=== PATIENT | male | born 1945 | race Caucasian/White ===

== ENCOUNTER 2017-12-24 08:37 | Day surgery (SDC) | payer MEDICARE, MEDICAID ==
[2017-12-23 08:27] VITALS: BMI 20.4
[2017-12-24] MEDS ORDERED: Bupivacaine/Epinephrine 0.25% 30 ML VIAL ONE (10:52)
[2017-12-24] MEDS ORDERED: Fentanyl 100 MCG/2 ML VIAL ONE ×2 (10:57→13:20)
[2017-12-24] MEDS ORDERED: CEFAZOLIN/Water 2 GM/20 ML SYRINGE ONE (11:06)
[2017-12-24] MEDS ORDERED: Ketamine 50 MG/ML VIAL ONE (11:08)
[2017-12-24] MEDS ORDERED: SUGAMMADEX SODIUM 200 MG/2 ML VIAL ONE (11:56)
[2017-12-24 11:57] LABS: Anion Gap 10 mmol/L (10-20); BUN (Urea Nitrogen) 18 mg/dL (8.4-25.7); Calc. Creatinine Clearance 54 mL/min (70-130); Calcium 9.3 mg/dL (7.8-10.44); Carbon Dioxide 25 mmol/L (23-31); Chloride 105 mmol/L (98-107); Estimated GFR-MDRD 59; Glucose 116 mg/dL (83-110); Sodium 136 mmol/L (136-145)
[2017-12-24 12:53] LABS: #Basophils 0.1 thou/uL (0.0-0.2); #Eosinphils 0.3 thou/uL (0.0-0.7); #Lymphocytes 2.6 thou/uL (1.20-3.40); #Neutrophils 8.4 thou/uL (1.40-6.50); %Basophils 0.6 % (0.0-1.0); %Eosinophils 2.1 % (0.0-10.0); %Monocytes 7.9 % (0.0-10.0); %Neutrophils 68.4 % (42.0-75.0); Hemoglobin 13.5 g/dL (14.0-18.0); Mean Corpuscular HGB CONC 32.6 g/dL (32.0-36.0); Mean Corpuscular Hemoglobin 29.7 pg (27.0-31.0); Mean Corpuscular Volume 91.1 fL (78.0-98.0); Mean Platelet Volume 7.9 fL (7.4-10.4); Platelet Count 268 thou/uL (130-400); RBC Distribution Width 14.8 % (11.5-14.5); Red Blood Cell (RBC) Count 4.55 mill/uL (4.70-6.10); White Blood Cell (WBC) Count 12.2 thou/uL (4.8-10.8)
[2017-12-24 12:55] LABS: Reflex for Review?? NO
[2017-12-24] MEDS ORDERED: Hydrocortisone Sod Succ/PF 100 mg/2 ml Vial ONE (13:26)
[2017-12-24] MEDS ORDERED: Esmolol 100 MG/10 ML VIAL ONE (13:26)
[2017-12-24] MEDS ORDERED: PHENYLEPHRINE-NS 100 MCG/ML 10 ML SYRINGE ONE (13:26)
[2017-12-24] MEDS ORDERED: Ondansetron HCl/PF 4 MG/2 ML Vial ONE (13:53)
--- NOTE | 2017-12-24 17:46 | EKG ---
Test Reason : PREOP Blood Pressure : / mmHG Vent. Rate : 079 BPM Atrial Rate : 079 BPM P-R Int : 190 ms QRS Dur : 084 ms QT Int : 376 ms P-R-T Axes : 051 -09 054 degrees QTc Int : 431 ms Sinus rhythm with occasional Premature ventricular complexes and Premature atrial complexes Septal infarct , age undetermined Cannot rule out Inferior infarct , age undetermined Abnormal ECG No previous ECGs available Confirmed by DR. Gene REYES ([id number]) on 12/24/2017 5:45:53 PM Referred By: RAÚL Confirmed By:DR. Gene REYES
--- NOTE | 2017-12-25 15:20 | OP ---
PREOPERATIVE DIAGNOSIS: Mediastinal adenopathy. PROCEDURE: Cervical mediastinal exploration. SURGEON: Drake lFynn M.D. ANESTHESIA: General. ESTIMATED BLOOD LOSS: Minimal. PROCEDURE IN DETAIL: After prepping and draping, incision was made in the suprasternal notch. Disse ction carried down to the trachea where blunt dissection was carried into the mediastinum. Scope was then inserted and the azygos node was biopsied and excised. There was no other significant lymphade nopathy. The lymph node grossly looked unremarkable. The wound was closed in layers and the patient is to be taken to the recovery room in guarded condition.
== END 2017-12-24 15:09 | disposition home or self-care (01) ==
LOC: SDC 08:37
PROVIDERS: ATTEND Thoracic Surgery (Cardiothoracic Vascular Surgery)
PROC: 0WBC0ZX Excision of Mediastinum, Open Approach, Diagnostic (ICD-10-PCS; principal; 2017-12-24)
DX: R59.0 Localized enlarged lymph nodes (principal); E83.119 Hemochromatosis, unspecified; J44.9 Chronic obstructive pulmonary disease, unspecified; I48.91 Unspecified atrial fibrillation; I11.0 Hypertensive heart disease with heart failure; I50.9 Heart failure, unspecified; I27.20 Pulmonary hypertension, unspecified; M19.90 Unspecified osteoarthritis, unspecified site; F17.210 Nicotine dependence, cigarettes, uncomplicated; Z79.52 Long term (current) use of systemic steroids; Z79.84 Long term (current) use of oral hypoglycemic drugs; Z79.899 Other long term (current) drug therapy; Z88.8 Allergy status to other drugs, medicaments and biological substances
CPT/HCPCS: 80048; 85025; 88184; 88307; 93005; 93010; 96374; 96375; J1720; J2405; J3010; J7620